=== PATIENT | female | born 1990 | race Caucasian/White ===

== ENCOUNTER → 2017-01-03 | Outpatient (CLI) | payer OTHER ==
[2015-06-25 10:20] VITALS: BP 113/78
[~2017-01-03] MED LIST: ACET-704 PO; CEPH500C PO; DIPH25CA58 PO; DOCU100C5 PO; HYDR-2672 PO; MORP15TA PO; ONDA4TAB7 PO; OXYC-323 PO; PHEN100T82 PO; PREN1TAB58 PO; RANI150C PO; SULF1TAB3 PO; TAMS0.4C97 PO; [UNRECOGNIZED DRUG - OTHER] PO
--- NOTE | 2017-01-03 16:38 | RAD ---
KUB, 01/03/2017: History: Flank pain, kidney stones There is a moderate amount of stool in both the ascending and descending colon. The abdominal gas pattern is otherwise unremarkable. No organomegaly is seen. The renal regions are partially obscured by the overlying bowel content. No definite renal calculi are seen. Lower pelvic calcifications on the left are probably phleboliths. IMPRESSION: 1. Increased stool in the colon. 2. Left-sided pelvic calcifications are probably vascular. If a ureteral calculus is clinically suspected, CT scanning is suggested for further evaluation.
== END | disposition home or self-care (01) ==
LOC: RAD 12:27
PROVIDERS: ATTEND Nurse Practitioner Occupational Health
DX: N20.0 Calculus of kidney (principal)
CPT/HCPCS: 74000

== ENCOUNTER 2022-02-23 23:31 | Inpatient (IN) | payer OTHER ==
[~2022-02-23] VITALS: Ht 160 cm; Wt 51.1 kg
[~2022-02-23 23:31] MED LIST changes: +DOCU100C28 PO; -DOCU100C5 PO; -HYDR-2672 PO; +HYDR-2769 PO; -OXYC-323 PO; +OXYC1TAB15 PO; +SULF-143 PO; -SULF1TAB3 PO
[2022-02-23 23:36] VITALS: BP 111/55
[2022-02-23] MEDS ORDERED: FAMO40TA4 PO (23:43)
[2022-02-23] MEDS ORDERED: TRAZ-118 PO (23:43)
[2022-02-23] MEDS ORDERED: PANT40TA77 PO (23:43)
[2022-02-24] VITALS (13 sets, daily range): BP systolic 100–120; BP diastolic 51–80
[2022-02-24] MEDS: IV RINGERS,LACTATED 1000ML 1,000 ML IV SCH ×3 (00:18→16:45)
[2022-02-24] MEDS ORDERED: ONDANSETRON PF 4 MG/2 ML VIAL. IVP PRN ×2 (06:00→16:45)
[2022-02-24 07:59] LABS: BASO % 0 % (0-3); EOS # 0.1 x10^3/uL (0.0-0.7); EOS % 1 % (0-3); HEMATOCRIT 35.7 % (36.0-47.0); HEMOGLOBIN 12.1 g/dL (12.0-15.5); LYMPH # 1.8 x10^3/uL (1.0-4.8); LYMPH % 20 % (24-48); MEAN CORPUSCULAR HEMOGLOBIN 32 pg (25-35); MEAN CORPUSCULAR HGB CONC 34 g/dL (31-37); MEAN CORPUSCULAR VOLUME 94 fL (79-100); MONO # 0.6 x10^3/uL (0.0-1.1); MONO % 7 % (0-9); NEUT # 6.3 x10^3/uL (1.8-7.7); NEUT % 72 % (31-73); PLATELET COUNT 236 x10^3/uL (140-400); RED BLOOD COUNT 3.82 x10^6/uL (3.50-5.40); WHITE BLOOD COUNT 8.7 x10^3/uL (4.0-11.0)
[2022-02-24 08:47] LABS: ALBUMIN 3.9 g/dL (3.4-5.0); ALBUMIN/GLOBULIN RATIO 1.2 (1.0-1.7); CALCIUM 8.5 mg/dL (8.5-10.1); CREATININE 0.8 mg/dL (0.6-1.0); GFR 83.7; POTASSIUM 3.4 mmol/L (3.5-5.1); TOTAL BILIRUBIN 1.4 mg/dL (0.2-1.0); TOTAL PROTEIN 7.1 g/dL (6.4-8.2)
[2022-02-24] MEDS ORDERED: PROMETHAZINE 25 MG SUPP.RECT. PR PRN (09:30)
[2022-02-24] MEDS ORDERED: ACETAMINOPHEN 650 MG SUPP.RECT. PR PRN (09:30)
--- NOTE | 2022-02-24 12:42 | PDOC2 ---
CONSULT Date of Consult Date of Consult DATE: 02/24/22 TIME: 12:37 History of Present Illness Reason for Visit: 31 year old female transferred to [facility] from ER at [facility]. She presented to the ER last evening due to abdominal pain. The pain began 2 days ago and has been located in the right lower abdomen. She states the pain was severe last night, but has improved some today. The pain does not radiate. She denies fever, chills, nausea or vomiting. While in the ER she was found to have a normal WBC, and a CT scan was equivocal for appendicitis. Past Medical History Past Medical History gastroparesis Past Surgical History Past Surgical History umbilical hernia repair Social History No ALCOHOL: none Current Medications Current Medications Current Medications Ringer's Solution 1,000 ml @ 75 mls/hr [id number] IV Last administered on 02/24/22at 12:13; Start 02/24/22 at 00:00 Morphine Sulfate (Morphine Sulfate) 2 mg PRN Q4HRS PRN IVP SEVERE PAIN 7-10; Start 02/23/22 at 23:45 Metronidazole 100 ml @ 100 mls/hr Q8HRS IV Last administered on 02/24/22at 06:15; Start 02/24/22 at 06:00 Ondansetron HCl (Zofran) 4 mg PRN Q8HRS PRN IVP NAUSEA/VOMITING 1ST CHOICE Last administered on 02/24/22at 06:15; Start 02/24/22 at 06:00 Promethazine HCl (Phenergan Supp) 25 mg PRN Q6HRS PRN NM NAUSEA/VOMITING; Start 02/24/22 at 09:30 Acetaminophen (Tylenol Supp) 650 mg PRN Q6HRS PRN NM MILD PAIN / TEMP > 100.3'F Last administered on 02/24/22at 09:49; Start 02/24/22 at 09:30 Ceftriaxone Sodium (Rocephin) 1 gm Q24H IVP ; Start 02/24/22 at 21:00 Active Scripts Active Reported Pantoprazole Sodium (Pantoprazole Sodium) 40 Mg Tablet.dr 40 Mg PO DAILYAC Famotidine 40 Mg Tablet 40 Mg PO DAILY Trazodone Hcl 50 Mg Tablet 50 Mg PO HS Allergies Allergies: Coded Allergies: cinnamon (Verified Allergy, Intermediate, TONGUE NUMB,SWELLED AND THROAT CLOSING, 06/24/15) ROS General: No: Chills, Night Sweats, Fatigue, Malaise, Appetite, Other PSYCHOLOGICAL ROS: No: Anxiety, Behavioral Disorder, Concentration difficultie, Decreased libido, Depression, Disorientation, Hallucinations, Hostility, Irritablity, Memory difficulties, Mood Swings, Obsessive thoughts, Physical abuse, Sexual abuse, Sleep disturbances, Suicidal ideation, Other Eyes: No Blurry vision, No Decreased vision, No Double vision, No Dry eyes, No Excessive tearing, No Eye Pain, No Itchy Eyes, No Loss of vision, No Photophobia, No Scotomata, No Uses contacts, No Uses glasses, No Other HEENT: No: Heacaches, Visual Changes, Hearing change, Nasal congestion, Nasal discharge, Oral lesions, Sinus pain, Sore Throat, Epistaxis, Sneezing, Snoring, Tinnitus, Vertigo, Vocal changes, Other ALLERGY AND IMMUNOLOGY: No: Hives, Insect Bite Sensitivity, Itchy/Watery Eyes, Nasal Congestion, Post Nasal Drip, Seasonal Allergies, Other Hematological and Lymphatic: No: Bleeding Problems, Blood Clots, Blood Trans fusions, Brusing, Night Sweats, Pallor, Swollen Lymph Nodes, Other ENDOCRINE: No: Breast Changes, Galactorrhea, Hair Pattern Changes, Hot Flashes, Malaise/lethargy, Mood Swings, Palpitations, Polydipsia/polyuria, Skin Changes, Temperature Intolerance, Unexpected Weight Changes, Other Respiratory: No: Cough, Hemoptysis, Orthopnea, Pleuritic Pain, Shortness of breath, SOB with excertion, Sputum Changes, Stridor, Tachypnea, Wheezing, Other Cardiovascular: No Chest Pain, No Palpitations, No Orthopnea, No Paroxysmal Noc. Dyspnea, No Edema, No Lt Headedness, No Other Gastrointestinal: Yes Abdominal Pain Genitourinary: No Dysuria, No Frequency, No Incontinence, No Hematuria, No Retention, No Discharge, No Urgency, No Pain, No Flank Pain, No Other, No , No , No , No , No , No , No Musculoskeletal: No Gait Disturbance, No Joint Pain, No Joint Stiffness, No Joint Swelling, No Muscle Pain, No Muscular Weakness, No Pain In:, No Swelling In:, No Other Neurological: No Behavorial Changes, No Bowel/Bladder ControlChng, No Confusion, No Dizziness, No Gait Disturbance, No Headaches, No Impaired Coord/balance, No Memory Loss, No Numbness/Tingling, No Seizures, No Speech Problems, No Tremors, No Visual Changes, No Weakness, No Other Skin: No Dry Skin, No Eczema, No Hair Changes, No Lumps, No Mole Changes, No Mottling, No Nail Changes, No Pruritus, No Rash, No Skin Lesion Changes, No Other, No Acne Physical Exam General: Alert, Oriented X3, Cooperative HEENT: Atraumatic Lungs: Clear to auscultation Heart: Regular rate Abdomen: Soft (thin, some tenderness in RLQ, no guarding or peritoneal signs) Extremities: No clubbing, No cyanosis Skin: No rashes Neuro: Normal speech Psych/Mental Status: Mental status NL Vitals VITALS Vital Signs Date Time Temp Pulse Resp B/P (MAP) Pulse Ox O2 Delivery O2 Flow Rate FiO2 02/24/22 11:00 99.1 59 18 102/59 (73) 97 Room Air 99.1 Labs Labs Laboratory Tests Test 02/24/22 07:30 White Blood Count 8.7 x10^3/uL (4.0-11.0) Red Blood Count 3.82 x10^6/uL (3.50-5.40) Hemoglobin 12.1 g/dL (12.0-15.5) Hematocrit 35.7 % (36.0-47.0) Mean Corpuscular Volume 94 fL (79-100) Mean Corpuscular Hemoglobin 32 pg (25-35) Mean Corpuscular Hemoglobin Concent 34 g/dL (31-37) Red Cell Distribution Width 13.0 % (11.5-14.5) Platelet Count 236 x10^3/uL (140-400) Neutrophils (%) (Auto) 72 % (31-73) Lymphocytes (%) (Auto) 20 % (24-48) Monocytes (%) (Auto) 7 % (0-9) Eosinophils (%) (Auto) 1 % (0-3) Basophils (%) (Auto) 0 % (0-3) Neutrophils # (Auto) 6.3 x10^3/uL (1.8-7.7) Lymphocytes # (Auto) 1.8 x10^3/uL (1.0-4.8) Monocytes # (Auto) 0.6 x10^3/uL (0.0-1.1) Eosinophils # (Auto) 0.1 x10^3/uL (0.0-0.7) Basophils # (Auto) 0.0 x10^3/uL (0.0-0.2) Sodium Level 138 mmol/L (136-145) Potassium Level 3.4 mmol/L (3.5-5.1) Chloride Level 102 mmol/L (98-107) Carbon Dioxide Level 27 mmol/L (21-32) Anion Gap 9 (6-14) Blood Urea Nitrogen 10 mg/dL (7-20) Creatinine 0.8 mg/dL (0.6-1.0) Estimated GFR (Cockcroft-Gault) 83.7 BUN/Creatinine Ratio 13 (6-20) Glucose Level 115 mg/dL (70-99) Calcium Level 8.5 mg/dL (8.5-10.1) Total Bilirubin 1.4 mg/dL (0.2-1.0) Aspartate Amino Transf (AST/SGOT) 10 U/L (15-37) Alanine Aminotransferase (ALT/SGPT) 16 U/L (14-59) Alkaline Phosphatase 44 U/L (46-116) Total Protein 7.1 g/dL (6.4-8.2) Albumin 3.9 g/dL (3.4-5.0) Albumin/Globulin Ratio 1.2 (1.0-1.7) Laboratory Tests Test 02/24/22 07:30 White Blood Count 8.7 x10^3/uL (4.0-11.0) Red Blood Count 3.82 x10^6/uL (3.50-5.40) Hemoglobin 12.1 g/dL (12.0-15.5) Hematocrit 35.7 % (36.0-47.0) Mean Corpuscular Volume 94 fL (79-100) Mean Corpuscular Hemoglobin 32 pg (25-35) Mean Corpuscular Hemoglobin Concent 34 g/dL (31-37) Red Cell Distribution Width 13.0 % (11.5-14.5) Platelet Count 236 x10^3/uL (140-400) Neutrophils (%) (Auto) 72 % (31-73) Lymphocytes (%) (Auto) 20 % (24-48) Monocytes (%) (Auto) 7 % (0-9) Eosinophils (%) (Auto) 1 % (0-3) Basophils (%) (Auto) 0 % (0-3) Neutrophils # (Auto) 6.3 x10^3/uL (1.8-7.7) Lymphocytes # (Auto) 1.8 x10^3/uL (1.0-4.8) Monocytes # (Auto) 0.6 x10^3/uL (0.0-1.1) Eosinophils # (Auto) 0.1 x10^3/uL (0.0-0.7) Basophils # (Auto) 0.0 x10^3/uL (0.0-0.2) Sodium Level 138 mmol/L (136-145) Potassium Level 3.4 mmol/L (3.5-5.1) Chloride Level 102 mmol/L (98-107) Carbon Dioxide Level 27 mmol/L (21-32) Anion Gap 9 (6-14) Blood Urea Nitrogen 10 mg/dL (7-20) Creatinine 0.8 mg/dL (0.6-1.0) Estimated GFR (Cockcroft-Gault) 83.7 BUN/Creatinine Ratio 13 (6-20) Glucose Level 115 mg/dL (70-99) Calcium Level 8.5 mg/dL (8.5-10.1) Total Bilirubin 1.4 mg/dL (0.2-1.0) Aspartate Amino Transf (AST/SGOT) 10 U/L (15-37) Alanine Aminotransferase (ALT/SGPT) 16 U/L (14-59) Alkaline Phosphatase 44 U/L (46-116) Total Protein 7.1 g/dL (6.4-8.2) Albumin 3.9 g/dL (3.4-5.0) Albumin/Globulin Ratio 1.2 (1.0-1.7) Assessment/Plan Assessment/Plan 31 year old female with RLQ pain, eval equivocal, WBC normal, CT with mildly dilated appendix. I reviewed situation with the patient and the options which include laparoscopy vs continued observation and serial exam/labs. She prefers laparoscopy with appendectomy. I did explain the risks of surgery and the substantial chance of a negative appendectomy. She understands and would like to proceed with surgery. Dr Cedillo will arrange. RYLAN FREED MD Feb 24, 2022 12:42
[2022-02-24] MEDS ORDERED: BUPIVACAINE-EPI 0.5% 30 ML VIAL KIT. ONE (12:48)
--- NOTE | 2022-02-24 12:57 | PDOC ---
SURGICAL PROGRESS NOTE DATE: 02/24/22 TIME: 12:54 Subjective Pre-Op Note 31 yo F with RLQ abd pain starting 02/22. Pain worse at that time, but minimally improved. Still with pain. D/w Dr. Corley. D/w pt. TTP RLQ CT and labs equivocable for appendicitis. Offered pt options of appendectomy vs abx. She elects for surgery. R/R/B/A d/w pt. Risks, including, but not limited to: bleeding, infection, damage to surrounding structures, risk of anesthesia, risk of open. She appears to understand, her questions are answered and she elects to proceed. Vital Signs Vital Signs Date Time Temp Pulse Resp B/P (MAP) Pulse Ox O2 Delivery O2 Flow Rate FiO2 02/24/22 11:00 99.1 59 18 102/59 (73) 97 Room Air 99.1 I&O Intake and Output 02/24/22 07:00 Intake Total 375 ml Balance 375 ml Intake Oral 0 ml IV Total 375 ml # Voids 3 Labs Laboratory Tests Test 02/24/22 07:30 White Blood Count 8.7 x10^3/uL (4.0-11.0) Red Blood Count 3.82 x10^6/uL (3.50-5.40) Hemoglobin 12.1 g/dL (12.0-15.5) Hematocrit 35.7 % (36.0-47.0) Mean Corpuscular Volume 94 fL (79-100) Mean Corpuscular Hemoglobin 32 pg (25-35) Mean Corpuscular Hemoglobin Concent 34 g/dL (31-37) Red Cell Distribution Width 13.0 % (11.5-14.5) Platelet Count 236 x10^3/uL (140-400) Neutrophils (%) (Auto) 72 % (31-73) Lymphocytes (%) (Auto) 20 % (24-48) Monocytes (%) (Auto) 7 % (0-9) Eosinophils (%) (Auto) 1 % (0-3) Basophils (%) (Auto) 0 % (0-3) Neutrophils # (Auto) 6.3 x10^3/uL (1.8-7.7) Lymphocytes # (Auto) 1.8 x10^3/uL (1.0-4.8) Monocytes # (Auto) 0.6 x10^3/uL (0.0-1.1) Eosinophils # (Auto) 0.1 x10^3/uL (0.0-0.7) Basophils # (Auto) 0.0 x10^3/uL (0.0-0.2) Sodium Level 138 mmol/L (136-145) Potassium Level 3.4 mmol/L (3.5-5.1) Chloride Level 102 mmol/L (98-107) Carbon Dioxide Level 27 mmol/L (21-32) Anion Gap 9 (6-14) Blood Urea Nitrogen 10 mg/dL (7-20) Creatinine 0.8 mg/dL (0.6-1.0) Estimated GFR (Cockcroft-Gault) 83.7 BUN/Creatinine Ratio 13 (6-20) Glucose Level 115 mg/dL (70-99) Calcium Level 8.5 mg/dL (8.5-10.1) Total Bilirubin 1.4 mg/dL (0.2-1.0) Aspartate Amino Transf (AST/SGOT) 10 U/L (15-37) Alanine Aminotransferase (ALT/SGPT) 16 U/L (14-59) Alkaline Phosphatase 44 U/L (46-116) Total Protein 7.1 g/dL (6.4-8.2) Albumin 3.9 g/dL (3.4-5.0) Albumin/Globulin Ratio 1.2 (1.0-1.7) Laboratory Tests Test 02/24/22 07:30 White Blood Count 8.7 x10^3/uL (4.0-11.0) Red Blood Count 3.82 x10^6/uL (3.50-5.40) Hemoglobin 12.1 g/dL (12.0-15.5) Hematocrit 35.7 % (36.0-47.0) Mean Corpuscular Volume 94 fL (79-100) Mean Corpuscular Hemoglobin 32 pg (25-35) Mean Corpuscular Hemoglobin Concent 34 g/dL (31-37) Red Cell Distribution Width 13.0 % (11.5-14.5) Platelet Count 236 x10^3/uL (140-400) Neutrophils (%) (Auto) 72 % (31-73) Lymphocytes (%) (Auto) 20 % (24-48) Monocytes (%) (Auto) 7 % (0-9) Eosinophils (%) (Auto) 1 % (0-3) Basophils (%) (Auto) 0 % (0-3) Neutrophils # (Auto) 6.3 x10^3/uL (1.8-7.7) Lymphocytes # (Auto) 1.8 x10^3/uL (1.0-4.8) Monocytes # (Auto) 0.6 x10^3/uL (0.0-1.1) Eosinophils # (Auto) 0.1 x10^3/uL (0.0-0.7) Basophils # (Auto) 0.0 x10^3/uL (0.0-0.2) Sodium Level 138 mmol/L (136-145) Potassium Level 3.4 mmol/L (3.5-5.1) Chloride Level 102 mmol/L (98-107) Carbon Dioxide Level 27 mmol/L (21-32) Anion Gap 9 (6-14) Blood Urea Nitrogen 10 mg/dL (7-20) Creatinine 0.8 mg/dL (0.6-1.0) Estimated GFR (Cockcroft-Gault) 83.7 BUN/Creatinine Ratio 13 (6-20) Glucose Level 115 mg/dL (70-99) Calcium Level 8.5 mg/dL (8.5-10.1) Total Bilirubin 1.4 mg/dL (0.2-1.0) Aspartate Amino Transf (AST/SGOT) 10 U/L (15-37) Alanine Aminotransferase (ALT/SGPT) 16 U/L (14-59) Alkaline Phosphatase 44 U/L (46-116) Total Protein 7.1 g/dL (6.4-8.2) Albumin 3.9 g/dL (3.4-5.0) Albumin/Globulin Ratio 1.2 (1.0-1.7) Justicifation of Admission Dx: Justifications for Admission: Justification of Admission Dx: Yes Sepsis: Dehydration NAYELY CHAPPELL MD Feb 24, 2022 12:57
[2022-02-24] MEDS ORDERED: HYDROmorphone 2 MG/ML INJ. IVP PRN (13:00)
[2022-02-24] MEDS ORDERED: PROCHLORPERAZINE 10 MG/2 ML VIAL. IVP PRN (13:00)
[2022-02-24] MEDS ORDERED: IV RINGERS,LACTATED 1000ML 1,000 ML IV SCH (13:00)
[2022-02-24] MEDS ORDERED: fentaNYL PF VIAL 100 MCG/2 ML VIAL IVP PRN ×2 (13:00)
[2022-02-24] MEDS ORDERED: ONDANSETRON PF 4 MG/2 ML VIAL. ONE (13:01)
[2022-02-24] MEDS ORDERED: DEXAMETHASONE SOD PHOS 4 MG/ML VIAL ONE (13:01)
[2022-02-24] MEDS ORDERED: PROPOFOL 10 MG/ML (20ML) VIAL. IV ONE (13:01)
[2022-02-24] MEDS ORDERED: LIDOCAINE 2% PF 5 ML VIAL. ONE (13:01)
[2022-02-24] MEDS ORDERED: fentaNYL PF VIAL 100 MCG/2 ML VIAL ONE ×2 (13:02→14:32)
[2022-02-24] MEDS ORDERED: ROCURONIUM 50 MG/5 ML VIAL. ONE (13:02)
[2022-02-24] MEDS ORDERED: MIDAZOLAM HCL/PF 2 MG/2 ML VIAL. ONE ×2 (13:15→13:22)
--- NOTE | 2022-02-24 13:45 | HP ---
DATE OF SERVICE: 02/24/2022 ADMIT DATE: 02/23/2022 HISTORY OF PRESENT ILLNESS: The patient is a 31-year-old female patient who presented to the Emergency Room of [facility] with a complaint of abdominal pain, it is mostly in the right lower quadrant, had started the day before yesterday. Her pain intensity has worsened, has been taking Tylenol without any relief. Denied any vomiting, diarrhea, or fever. She does have a history of gastroparesis and her last bowel movement was yesterday. She was extensively evaluated in the Emergency Room, has had lab work and imaging studies. Her lab work were essentially unremarkable. Urinalysis also was unrevealing and her coronavirus by rapid antigen testing was negative. Did have abdominal ultrasound, which showed the appendix is not identified in the right lower quadrant of the abdomen, resisting bowel, peristalsing bowel loops identified. No free air or fluid. The patient has also a CT scan of the abdomen and pelvis showed that the liver, spleen, pancreas and adrenals are unremarkable. Gallbladder is decompressed. No perinephric inflammation or hydronephrosis. Nonobstructing renal calculi noted bilaterally. No ureteral calculi are seen. Bladder is partially distended and not well evaluated. Uterus is not enlarged. No abnormal adnexal masses. Small amount of free fluid noted in the pelvis. Large and small bowels are unremarkable. Appendix is mildly dilated measuring up to 9 mm in diameter. No adjacent fluid collection. Abdominal aorta has normal course and caliber. Abdominal vasculature is patent. No enlarged intra-abdominal lymph nodes are identified. No suspicious osseous lesions or acute fractures. The impression is that the patient has mild dilated appendix that can be seen in the setting of early appendicitis. Therefore, the patient was transferred to [facility] to consult the surgical team. She was treated with IV antibiotic in the form of ceftriaxone as well as Flagyl, started on IV fluid, started on morphine and ondansetron. PAST MEDICAL HISTORY: Significant for gastroparesis and recurrent renal stones. PAST SURGICAL HISTORY: Significant for periumbilical hernia repair and multiple cystoscopies and ureteral stents and lithotripsies. FAMILY HISTORY: Unremarkable. SOCIAL HISTORY: She is single and does not smoke, drink alcohol or use recreational drugs. She works at [employer]. ALLERGIES: She has no known drug allergies. MEDICATIONS: She is currently on Pepcid and Protonix during daytime and trazodone at nighttime. REVIEW OF SYSTEMS: As per history of present illness. PHYSICAL EXAMINATION: GENERAL: On arrival to the Emergency Room, the patient looked well and was clearly in no apparent respiratory distress. No pallor, jaundice, cyanosis or thyromegaly. No jugular venous distention. No limb edema. VITAL SIGNS: Her heart rate was 65, blood pressure was 108/71, temperature 98.3, respiratory rate was 16 and oxygen saturation was 97% on room air. HEAD, EYES, EARS, NOSE, AND THROAT: Normocephalic and atraumatic. NECK: Supple. HEART: Showed normal first and second heart sounds. No gallop, rub or murmur. CHEST: Clear to auscultation, no crepitation or rhonchi. ABDOMEN: Scaphoid, soft. Tenderness mostly in the right lower quadrant. There is no guarding or rigidity. No organomegaly. Her hernial orifice was intact. Bowel sounds normal. NEUROLOGIC: She was grossly intact. LABORATORY DATA: Her white cell count was 6.5, hemoglobin 12.4, hematocrit 37, MCV 94 and platelet count 239,000 with normal manual differential. Her serum sodium was 144, potassium 4.4, chloride 105, bicarbonate 32, anion gap of 7, BUN 17, creatinine 0.9. Estimated GFR was 73 mL per minute. Her glucose 95, calcium was 9.4, magnesium 2.2. Total bilirubin, AST, ALT, alkaline phosphatase were normal. Total protein 7.1, albumin 4, lipase was 185. Her urinalysis was essentially unremarkable and her coronavirus by rapid antigen testing was negative. ASSESSMENT AND PLAN: In summary, this is a 31-year-old female patient, presented with abdominal pain that is mostly in the right lower quadrant. CT scan showed that the appendix is mildly dilated at 9 mm in diameter with no adjacent fluid collection. The patient was admitted to [facility]. She was kept n.p.o. and start IV fluid, IV antibiotic, pain medication and antiemetic and we have consulted the surgical team for further evaluation and perhaps definitive surgical treatment. CHELSIE/MARIA M/VADIM DR: Tasneem TID: [id number]
[2022-02-24] MEDS ORDERED: KETOROLAC 30 MG/ML VIAL. ONE (14:08)
[2022-02-24] MEDS ORDERED: SURGICEL HEMOSTAT 4X8 EACH. ONE (14:14)
[2022-02-24] MEDS ORDERED: GLYCOPYRROLATE 1 MG/5 ML VIAL. ONE (14:16)
[2022-02-24] MEDS ORDERED: NEOSTIGMINE METHYLSULFATE 5 MG/5 ML SYRINGE. ONE (14:16)
[2022-02-24] MEDS ORDERED: MORPHINE SULFATE 2 MG/ML INJ. ONE (14:54)
[2022-02-24] MEDS: MORPHINE SULFATE 2 MG/ML INJ. IVP PRN ×3 (15:00→21:06)
[2022-02-24] MEDS ORDERED: IV NORMAL SALINE 1000ML BAG 1,000 ML IV SCH (16:45)
[2022-02-24] MEDS ORDERED: 0.9 % SODIUM CHLORIDE 10 ML DISP.SYRIN. IV PRN (16:45)
[2022-02-24] MEDS ORDERED: NALOXONE 0.4 MG/ML VIAL. IV PRN (16:45)
--- NOTE | 2022-02-24 16:46 | PDOC4 ---
OPERATIVE NOTE Date: Date: Feb 24, 2022 Pre-Op Diagnosis: Right lower quadrant abdominal pain, possible appendicitis Post-Op Diagnosis: same Procedure Performed: laparoscopic appendectomy Surgeon: Kyler Chappell Anesthesia Type: GETA plus local Blood Loss: 50 Specimans Obtained: appendix Findings: small amount of hemorrhagic fluid in pelvis (c/w with ruptured ovarian cyst), grossly normal appendix, manuel óscar laureano adhesion, normal gallbladder with an adhesion to gallbladder, redundant sigmoid Complications: none Operative Note: After obtaining informed consent, patient was taken to OR, induced under GETA a nd prepped in the usual fashion. 5 mm ports placed LLQ and suprapubic, 12 port placed umbilical, all under laparoscopic guidance. Abdominal cavity was explored and noted as above. Appendix was grasped and defect was created in mesoappendix. General load NOEL taken across base of appendix. Vascular load taken across mesoappendix. Clips were placed on staple line for hemostasis. Appendix was placed in bag, delivered and sent to pathology. Copious irrigation. No evidence of bleeding or other pathology. Surgicel placed over staple line. Ports removed without bleeding. Fascia repaired with 0 vicryl. Skin repaired with 4 0 monocryl. Dressing placed. Patient tolerated procedure well and sent to PACU in stable condition. All counts correct. Wound class is 2. NAYELY CHAPPELL MD Feb 24, 2022 16:46
[2022-02-24] MEDS ORDERED: traZODone 50 MG TABLET. PO SCH (21:00)
[2022-02-24] MEDS ORDERED: cefTRIAXone IV Push 1 GM VIAL. IVP SCH (21:00)
[2022-02-24] MEDS: PANTOPRAZOLE 40 MG TABLET.DR. PO SCH (21:04)
[2022-02-24] MEDS: DOCUSATE SODIUM 100 MG CAPSULE. PO SCH (21:04)
--- NOTE | 2022-02-24 21:15 | NUR ---
Patient's personal medication bottle of trazodone found in room and sent to pharmacy.
[2022-02-24] MEDS: FAMOTIDINE 20 MG TABLET. PO SCH (22:35)
[2022-02-24] MEDS: HYDROcodone/APAP 5/325MG 1 TAB TABLET PO PRN (22:35)
[2022-02-25] MEDS: MORPHINE SULFATE 2 MG/ML INJ. IVP PRN (03:07)
[2022-02-25] MEDS: IV RINGERS,LACTATED 1000ML 1,000 ML IV SCH ×2 (03:07→12:45)
[2022-02-25 03:19] VITALS: BP 109/67
[2022-02-25 07:00] VITALS: BP 127/74
--- NOTE | 2022-02-25 08:58 | PDOC ---
SURGICAL PROGRESS NOTE DATE: 02/25/22 TIME: 08:56 Subjective burning sensation abdomen no emesis Vital Signs Vital Signs Date Time Temp Pulse Resp B/P (MAP) Pulse Ox O2 Delivery O2 Flow Rate FiO2 02/25/22 04:00 13 Room Air 02/25/22 03:19 98.0 80 109/67 (81) 98 98.0 I&O Intake and Output 02/25/22 07:00 Intake Total 2238.12 ml Output Total 50 ml Balance 2188.12 ml Intake Oral 600 ml IV Total 1638.12 ml Output Estimated Blood Loss 50 ml # Voids 3 General: Alert, Oriented X3, Cooperative Abdomen: Soft, Other (dressings dry) Labs Laboratory Tests Test 02/24/22 07:30 White Blood Count 8.7 x10^3/uL (4.0-11.0) Red Blood Count 3.82 x10^6/uL (3.50-5.40) Hemoglobin 12.1 g/dL (12.0-15.5) Hematocrit 35.7 % (36.0-47.0) Mean Corpuscular Volume 94 fL (79-100) Mean Corpuscular Hemoglobin 32 pg (25-35) Mean Corpuscular Hemoglobin Concent 34 g/dL (31-37) Red Cell Distribution Width 13.0 % (11.5-14.5) Platelet Count 236 x10^3/uL (140-400) Neutrophils (%) (Auto) 72 % (31-73) Lymphocytes (%) (Auto) 20 % (24-48) Monocytes (%) (Auto) 7 % (0-9) Eosinophils (%) (Auto) 1 % (0-3) Basophils (%) (Auto) 0 % (0-3) Neutrophils # (Auto) 6.3 x10^3/uL (1.8-7.7) Lymphocytes # (Auto) 1.8 x10^3/uL (1.0-4.8) Monocytes # (Auto) 0.6 x10^3/uL (0.0-1.1) Eosinophils # (Auto) 0.1 x10^3/uL (0.0-0.7) Basophils # (Auto) 0.0 x10^3/uL (0.0-0.2) Sodium Level 138 mmol/L (136-145) Potassium Level 3.4 mmol/L (3.5-5.1) Chloride Level 102 mmol/L (98-107) Carbon Dioxide Level 27 mmol/L (21-32) Anion Gap 9 (6-14) Blood Urea Nitrogen 10 mg/dL (7-20) Creatinine 0.8 mg/dL (0.6-1.0) Estimated GFR (Cockcroft-Gault) 83.7 BUN/Creatinine Ratio 13 (6-20) Glucose Level 115 mg/dL (70-99) Calcium Level 8.5 mg/dL (8.5-10.1) Total Bilirubin 1.4 mg/dL (0.2-1.0) Aspartate Amino Transf (AST/SGOT) 10 U/L (15-37) Alanine Aminotransferase (ALT/SGPT) 16 U/L (14-59) Alkaline Phosphatase 44 U/L (46-116) Total Protein 7.1 g/dL (6.4-8.2) Albumin 3.9 g/dL (3.4-5.0) Albumin/Globulin Ratio 1.2 (1.0-1.7) Problem List s/p appy ok to [place] home FU 2 weeks Justicifation of Admission Dx: Justifications for Admission: Justification of Admission Dx: Yes Sepsis: Dehydration CORNELIUS MORALES APRN Feb 25, 2022 08:58
[2022-02-25] MEDS: PANTOPRAZOLE 40 MG TABLET.DR. PO SCH (09:00)
[2022-02-25] MEDS ORDERED: HYDR-2761 PO (09:01)
[2022-02-25] MEDS: HYDROcodone/APAP 5/325MG 1 TAB TABLET PO PRN (09:14)
[2022-02-25] MEDS: DOCUSATE SODIUM 100 MG CAPSULE. PO SCH (09:14)
[2022-02-25] MEDS: FAMOTIDINE 20 MG TABLET. PO SCH (09:15)
[2022-02-25 11:00] VITALS: BP 127/79
--- NOTE | 2022-02-25 16:47 | NUR ---
patient discharged 1420. Taken out by wheelchair. Patient received her home medication that was held in pharmacy. Pt stated she is missing a pair of leggins. notified CN. patient was told they would continue to look and they would be in contact with her.
--- NOTE | 2022-03-01 15:11 | PATHOLOGY ---
[facility] Accession Number: [id number] . 01 Material submitted: . appendix - APPENDIX . 01 Clinical history: . APPENDICITIS . 02 Diagnosis: Appendix, laparoscopic appendectomy: - No significant pathologic abnormalities. See comment. (JPM:paradise; 03/01/2022) [facility] 03/01/2022 1430 Local . 02 Comment: There is focal acute inflammation within the appendiceal lumen. The appendiceal mucosa is intact and shows focal mild acute inflammation. However, there is no acute inflammatory cell infiltrate within the submucosa or appendiceal fibromuscular wall. (JPM:paradise; 03/01/2022) . 02 Electronically signed: . Amol Matthews MD, Pathologist NPI- [id number] . 01 Gross description: . Fixative: Formalin Labeled: Appendix Appendix length: 5.7 cm Appendix diameter: 0.7 cm Mesoappendix: 3.6 x 1.7 x 0.8 cm Proximal margin: Closed with a staple line Serosa: Wahl-brown and smooth with focal hemorrhage near the proximal margin Cut surface: Wahl-brown and grossly unremarkable with focal hemorrhage in the mesoappendix near the margin Luminal diameter: 0.3 cm Perforation: No Lesions/abnormalities: None identified A1 Proximal margin (inked black) and distal tip, bisected A2 Mid appendix (SKC; 02/25/2022) SYC/SYC 02/25/2022 1301 Local . 02 Pathologist provided ICD-10: K35.80 . 02 CPT . [id number] Specimen Comment: A courtesy copy of this report has been sent to [phone], [phone] Specimen Comment: [id number] Specimen Comment: Report sent to / DR CHAPPELL Performed at: 01 [facility] [address], [place], [place] [id number] MD Nicho Laboy MD Phone: [phone] Performed at: 02 [facility] [address] [place], [place] [id number] MD Amol Matthews MD Phone: [phone]
== END 2022-02-25 14:50 | disposition home or self-care (01) | DRG 343 ==
LOC: 4 NORTH 23:31
PROVIDERS: ADMIT Internal Medicine; ATTEND Internal Medicine
PROC: 0DTJ4ZZ Resection of Appendix, Percutaneous Endoscopic Approach (ICD-10-PCS; principal; 2022-02-24 13:00)
DX: K37 Unspecified appendicitis (principal); E86.0 Dehydration; K82.8 Other specified diseases of gallbladder; N20.0 Calculus of kidney; N83.209 Unspecified ovarian cyst, unspecified side; Z87.442 Personal history of urinary calculi
CPT/HCPCS: 36415; 80053; 85025; 88304; A4314; A4930; A6219; J0696; J1100; J1885; J2250; J2270; J2405; J2704; J2710; J3010; J3490; J7120; G0378